=== PATIENT | female | born 1980 | race American Indian/Alaskan Native ===

== ENCOUNTER 2017-12-24 09:56 | Outpatient (CLI) | payer MEDICAID | END 2017-12-24 11:35 | disposition home or self-care (01) | LOC: TRG 09:56 | PROVIDERS: ATTEND Obstetrics & Gynecology | DX: O47.1 False labor at or after 37 completed weeks of gestation (principal); Z3A.37 37 weeks gestation of pregnancy | CPT/HCPCS: 59025 ==

== ENCOUNTER 2018-01-07 23:58 | Inpatient (IN) | payer MEDICAID ==
[2018-01-08] MEDS ORDERED: BRETHINE SUB-Q PRN ×2 (00:36→01:49)
[2018-01-08] MEDS ORDERED: SUBLIMAZE IV PRN (00:36)
[2018-01-08] MEDS ORDERED: ePHEDrine SULFATE IV PRN ×2 (00:36→01:49)
[2018-01-08] MEDS ORDERED: MINERAL OIL PO PRN ×2 (00:36→01:49)
[2018-01-08] MEDS ORDERED: XYLOCAINE 2% INFILTRATI ONE (00:36)
[2018-01-08] MEDS ORDERED: POLYCILLIN/NS 2 GM/100 ML 2 GM/100 ML BAG IV ONE (00:36)
[2018-01-08] MEDS ORDERED: BRETHINE IVP PRN ×2 (00:36→01:49)
[2018-01-08] MEDS ORDERED: PITOCin/NS 20 UNIT/1000ML DRIP 20 UNITS/1,000 ML BAG IV SCH ×2 (01:00→02:00)
[2018-01-08] MEDS ORDERED: LACTATED RINGERS 1,000 ML IV SCH ×2 (01:00→02:00)
[2018-01-08 01:06] LABS: Hematocrit 38.2 % (30.3-42.9); Hemoglobin 12.5 gm/dl (10.1-14.3); Mean Corpuscular HGB Conc 33 % (30-34); Mean Corpuscular Hemoglobin 29 pg (28-32); Mean Corpuscular Volume 89 fl (79-97); Platelet Count 204 K/mm3 (140-440); Red Blood Count 4.31 M/mm3 (3.65-5.03); Red Cell Distribution Width 14.4 % (13.2-15.2)
--- NOTE | 2018-01-08 02:02 | History and Physical Report ---
History of Present Illness Date of examination: 01/08/18 Date of admission: 01/08/18 00:35 Chief complaint: Contractions History of present illness: 37yo G 5 P 3 0 1 3 at 39 weeks 6 days here with c/o contractions every 6 to 8 mins. She reports positive movements but denies vaginal bleeding or loss of fluid. She is a [facility] patient where she only had 2 visits. Her last visit was over a month ago. No records are available. She reports initially receiving care at a practice in [place] prior to transferring to [facility]. Her course is complicated by Advanced Maternal Age. She denies any other complications. GBS unknown. Past History Past Medical History: no pertinent history Past Surgical History: no surgical history Family/Genetic History: none Social history: lives with family, full code - Obstetrical History Expected Date of Delivery: 01/09/18 Actual Gestation: 39 Week(s) 6 Day(s) : 5 Para: 3 Hx # Term Pregnancies: 3 Number of Pregnancies: 0 Spontaneous Abortions: 0 Induced : 1 Number of Living Children: 3 Medications and Allergies Allergies Allergy/AdvReac Type Severity Reaction Status Date / Time No Known Allergies Allergy Unverified 11/20/14 16:55 Home Medications Medication Instructions Recorded Confirmed Last Taken Type No Known Home Medications [No 11/21/14 07/18/16 Unknown History Reported Home Medications] Active Meds: Active Medications Ephedrine Sulfate (Ephedrine Sulfate) 10 mg IV Q2M PRN PRN Reason: Hypotension Ephedrine Sulfate (Ephedrine Sulfate) 10 mg IV Q2M PRN PRN Reason: Hypotension Fentanyl (Sublimaze) 100 mcg IV Q2H PRN PRN Reason: Labor Pain Lactated Ringer's (Lactated Ringers) 1,000 mls @ 125 mls/hr IV DIRECT ANNALEE Last Admin: 01/08/18 01:16 Dose: 125 mls/hr Oxytocin/Sodium Chloride (Pitocin/Ns 20 Unit/1000ml Drip) 20 units in 1,000 mls @ 125 mls/hr IV DIRECT ANNALEE Ampicillin Sodium (Ampicillin/Ns 1 Gm/50 Ml) 1 gm in 50 mls @ 100 mls/hr IV Q4HR ANNALEE; Protocol Lactated Ringer's (Lactated Ringers) 1,000 mls @ 125 mls/hr IV DIRECT ANNALEE Oxytocin/Sodium Chloride (Pitocin/Ns 20 Unit/1000ml Drip) 20 units in 1,000 mls @ 125 mls/hr IV DIRECT ANNALEE Mineral Oil (Mineral Oil) 30 ml PO QHS PRN PRN Reason: Constipation Mineral Oil (Mineral Oil) 30 ml PO QHS PRN PRN Reason: Constipation Terbutaline Sulfate (Brethine) 0.25 mg SUB-Q ONCE PRN PRN Reason: Hyperstimulation/Hypertonicity Terbutaline Sulfate (Brethine) 0.25 mg IVP ONCE PRN PRN Reason: Hyperstimulation/Hypertonicity Terbutaline Sulfate (Brethine) 0.25 mg SUB-Q ONCE PRN PRN Reason: Hyperstimulation/Hypertonicity Review of Systems All systems: negative - Vital Signs Vital signs: Vital Signs Temp Resp 98.6 F 20 01/08/18 00:21 01/08/18 00:21 Temp Pulse Resp BP Pulse Ox 98.6 F 67 20 106/61 01/08/18 00:21 01/08/18 01:16 01/08/18 00:21 01/08/18 01:16 - Physical Exam Cardiovascular: Regular rate, Normal S1, Normal S2, No murmurs Lungs: Positive: Clear to auscultation, Normal air movement Abdomen: Positive: normal appearance, soft Genitourinary (Female): Positive: normal external genitalia, normal perenium Vulva: both: normal Vagina: Positive: normal moisture Uterus: Positive: normal size, normal contour Anus/Rectum: Positive: normal perianal skin Extremities: Positive: normal Deep Tendon Reflex Grade: Normal +2 - Obstetrical FHR: auscultation normal, category 2 FHR comments: baseline 130, moderate variability, + accels, variable decels Uterine Contraction Monitor Mode: External Cervical Dilatation: 7.5 (per RN) Cervical Effacement Percentage: 100 (per RN) station: 0 (per RN) Uterine Contraction Pattern: Regular Results Result Diagrams: 01/08/18 00:48 All other labs normal. Assessment and Plan - Patient Problems (1) 39 weeks gestation of Current Visit: Yes Status: Acute (2) Active labor at term Current Visit: Yes Status: Acute Plan to address problem: Admit to L&D with routine labor orders Start ampicillin for GBS prophylaxis Anticipate vaginal delivery (3) AMA (advanced maternal age) multigravida 35+ Current Visit: Yes Status: Acute
[2018-01-08] MEDS ORDERED: MILK OF MAGNESIA PO PRN (02:12)
[2018-01-08] MEDS ORDERED: NORCO 5/325 PO PRN (02:12)
[2018-01-08] MEDS ORDERED: PHENERGAN PO PRN (02:12)
[2018-01-08] MEDS ORDERED: TUCKS PAD TP PRN (02:12)
[2018-01-08] MEDS ORDERED: LANSINOH TP PRN (02:12)
[2018-01-08] MEDS ORDERED: ZOFRAN IV PRN (02:12)
[2018-01-08] MEDS ORDERED: BENADRYL PO PRN (02:12)
[2018-01-08] MEDS ORDERED: TYLENOL PO PRN (02:12)
[2018-01-08] MEDS ORDERED: DULCOLAX PR PRN (02:12)
[2018-01-08] MEDS ORDERED: PHENERGAN PR PRN (02:12)
--- NOTE | 2018-01-08 02:22 | Procedure Note ---
OB Delivery Note - Delivery Date of Delivery: 01/08/18 Surgeon: TORIE SERRANO (TONY) Estimated blood loss: 100cc - Vaginal Delivery presentation: vertex Delivery position: OA Intrapartum events: precipitous labor- <3hr Delivery induction: none Delivery augmentation: rupture of membranes (AROM @ 01:22, clear fluid, moderate amount) Delivery monitor: external FHT, external uterine Route of delivery: (01:29) Delivery placenta: spontaneous (01:35) Delivery cord: 3 umbilical vessels Episiotomy: none Delivery laceration: none Anesthesia: none Delivery comments: of a vigorous term 5 lbs 6 oz male at 01:29. Baby placed [id number] on maternal abdomen. After 3 mins of delayed cord clamping, umbilical cord double- clamped by TONY Serrano and cut by FOB. Cord blood collected. Spontaneous delv of placenta Betzaida-side presenting @ 01:35. Small lochia present. Fundal massage and IV pitocin bolus initiated. Fundus F/ML/U-1. Placenta intact; was discarded. Perineum intact. No lacerations present. Mom and baby in stable condition. - Infant A at 1 minute: 9 at 5 minutes: 9 Gender: Male (5 lbs 6 oz (2437 g))
[2018-01-08] MEDS ORDERED: SODIUM CHLORIDE FLUSH SYRINGE 10 ML IV PRN (03:00)
[2018-01-08 03:31] LABS: Bilirubin,Urine NEG (Negative); Blood,Urine NEG (Negative); Color,Urine Yellow (Yellow); Mucus,Urine 1+ /HPF; Protein,Urine <15 mg/dL mg/dL (Negative); Urobilinogen,Urine < 2.0 mg/dL (<2.0)
[2018-01-08 03:39] LABS: Alanine Aminotransferase 12 units/L (7-56)
[2018-01-08 03:49] LABS: Uric Acid 2.9 mg/dL (3.5-7.6)
[2018-01-08] MEDS ORDERED: AMPICILLIN/NS 1 GM/50 ML 1 GM/50 ML BAG IV SCH (05:00)
[2018-01-08] MEDS: MOTRIN PO SCH ×3 (06:02→21:39)
[2018-01-08] MEDS: PRENATAL VITAMIN PO SCH (10:23)
[2018-01-08 15:54] LABS: Hematocrit 36.5 % (30.3-42.9)
[2018-01-09] MEDS: MOTRIN PO SCH ×4 (05:20→18:00)
--- NOTE | 2018-01-09 10:02 | Progress Note ---
Assessment and Plan A: PP Day #1 Stable P: Follow Routine Orders D/C Home today Plans Tubal RTO in 3 weeks Subjective - Subjective Date of service: 01/09/18 Patient reports: appetite normal, voiding normally, pain well controlled, flatus , ambulating normally : doing well, bottle feeding (and ) Objective - Vital Signs Latest vital signs: Vital Signs Temp Pulse Resp BP BP Pulse Ox 01/09/18 08:10 97.7 F 56 L 18 134/86 01/09/18 00:36 98.6 F 57 L 20 113/63 97 01/08/18 18:20 97.9 F 75 18 108/81 100 Intake and Output 01/08/18 01/09/18 01/09/18 22:59 06:59 14:59 Intake Total 200 360 Balance 200 360 Intake: Oral 200 360 Other: Total, Intake Amount 200 360 # Voids Void 1 1 - Exam Breasts: Present: normal Cardiovascular: Present: Regular rate Lungs: Present: Clear to auscultation, Normal air movement Abdomen: Present: normal appearance, soft, normal bowel sounds Uterus: Present: normal, firm, fundal height below umbilicus Extremities: Present: normal
--- NOTE | 2018-01-09 10:03 | Discharge Summary ---
Providers - Providers Date of Admission: 01/08/18 00:35 Date of discharge: 01/09/18 Attending physician: BENTLEY CORDOVA MD Primary care physician: BENTLEY CORDOVA MD Hospitalization Reason for admission: active labor Delivery: Episiotomy: none Laceration: none Other procedures: none complications: none Discharge diagnosis: IUP at term delivered [place] baby: male Condition at discharge: Good Disposition: DC-01 TO HOME OR SELFCARE Plan - Provider Discharge Summary Activity: routine, no sex for 6 weeks, no heavy lifting 4 weeks, no strenuous exercise Diet: routine Instructions: routine Additional instructions: [] Smoking cessation referral if applicable(refer to patient education folder for contact #) [] Refer to [facility]'s [facility] Booklet Call your doctor immediately for: * Fever > 100.5 * Heavy vaginal bleeding ( >1 pad per hour) * Severe persistent headache * Shortness of breath * Reddened, hot, painful area to leg or breast * Drainage or odor from incision. * Keep incision clean and dry at all times and follow doctor's instructions regarding bathing/showering - Follow up plan Follow up: BENTLEY CORDOVA MD [Primary Care Provider] - 01/30/18
[2018-01-09] MEDS: PRENATAL VITAMIN PO SCH (12:37)
[2018-01-10] MEDS: MOTRIN PO SCH ×3 (00:54→12:03)
[2018-01-10 10:06] VITALS: BP 134/93
[2018-01-10] MEDS: PRENATAL VITAMIN PO SCH (12:02)
== END 2018-01-10 15:00 | disposition home or self-care (01) | DRG 775 ==
LOC: TRG 23:58 → LD 01-08 00:35 → OB 01-08 03:17
PROVIDERS: ADMIT Obstetrics & Gynecology; ATTEND Obstetrics & Gynecology
PROC: 10E0XZZ Delivery of Products of Conception, External Approach (ICD-10-PCS; principal; 2018-01-08)
PROC: 10907ZC Drainage of Amniotic Fluid, Therapeutic from Products of Conception, Via Natural or Artificial Opening (ICD-10-PCS; 2018-01-08)
DX: O62.3 Precipitate labor (principal); Z3A.39 39 weeks gestation of pregnancy; Z37.0 Single live birth
CPT/HCPCS: 36415; 81001; 82565; 83615; 84450; 84460; 84550; 85014; 85018; 85027; 86592; 86850; 86900; 86901; 99211; G0463; J0290; J2590; J7120

== ENCOUNTER 2018-04-22 09:08 | Day surgery (SDC) | payer MEDICAID ==
[~2018-04-22 09:08] MED LIST: MARCAINE 0.5% INFILTRATI ONE; NACL 0.9% IR ONE
[2018-04-22] MEDS ORDERED: NACL BACTERIOSTATIC INFILTRATI ONE (11:28)
--- NOTE | 2018-04-22 11:32 | Anesthesia Consultation ---
Anesthesia Consult and Med Hx Date of service: 04/22/18 - Airway Anesthetic Teeth Evaluation: Good ROM Head & Neck: Adequate Mental/Hyoid Distance: Adequate Mallampati Class: Class I Intubation Access Assessment: Good - Pulmonary Exam CTA: Yes - Cardiac Exam Cardiac Exam: RRR - Pre-Operative Health Status ASA Pre-Surgery Classification: ASA2 Proposed Anesthetic Plan: General - Pulmonary Hx Smoking: Yes (2 cigs/day; quit 1999) Hx Asthma: No Hx Respiratory Symptoms: No COPD: No Hx Sleep Apnea: No - Cardiovascular System Hx Hypertension: Yes (Well controlled, no meds) Hx Heart Attack/AMI: No - Central Nervous System Hx Neuromuscular Disorder: No Hx Seizures: No CVA: No Hx Psychiatric Problems: No - Gastrointestinal Hx Gastroesophageal Reflux Disease: No - Endocrine Hx Renal Disease: No Hx Liver Disease: No Hx Insulin Dependent Diabetes: No Hx Non-Insulin Dependent Diabetes: No Hx Thyroid Disease: No - Hematic Hx Anemia: No Hx Sickle Cell Disease: No - Other Systems Hx Obesity: No - Additional Comments Anesthesia Medical History Comments: CBC pending per surgeon orders. NPO since midnight. No prior GA; no fam hx anesthesia complications.
--- NOTE | 2018-04-22 11:32 | Anesthesia Day of Surgery ---
Anesthesia Day of Surgery - Day of Surgery Patient Examined: Yes Patient H&P Reviewed: Yes Patient is NPO: Yes
[2018-04-22 11:49] LABS: Basophils # (Auto) 0.1 K/mm3 (0.0-0.1); Basophils % (Auto) 0.9 % (0.0-1.8); Eosinophils # (Auto) 0.1 K/mm3 (0.0-0.4); Eosinophils % (Auto) 1.6 % (0.0-4.3); Hematocrit 40.5 % (30.3-42.9); Hemoglobin 13.5 gm/dl (10.1-14.3); Lymphocytes # (Auto) 3.2 K/mm3 (1.2-5.4); Lymphocytes % (Auto) 41.7 % (13.4-35.0); Mean Corpuscular HGB Conc 34 % (30-34); Mean Corpuscular Hemoglobin 29 pg (28-32); Mean Corpuscular Volume 87 fl (79-97); Monocytes # (Auto) 0.4 K/mm3 (0.0-0.8); Monocytes % (Auto) 4.8 % (0.0-7.3); Platelet Count 282 K/mm3 (140-440); Red Blood Count 4.67 M/mm3 (3.65-5.03); Red Cell Distribution Width 14.6 % (13.2-15.2)
[2018-04-22] MEDS ORDERED: VERSED IV NR (12:00)
[2018-04-22] MEDS ORDERED: LACTATED RINGERS 1,000 ML IV SCH (12:00)
[2018-04-22] MEDS ORDERED: NEURONTIN PO NR (12:00)
[2018-04-22] MEDS ORDERED: ZOFRAN ONE (12:13)
[2018-04-22] MEDS ORDERED: ZEMURON IV ONE (12:13)
[2018-04-22] MEDS ORDERED: DECADRON ONE (12:13)
[2018-04-22] MEDS ORDERED: SUBLIMAZE ONE ×2 (12:13→13:34)
[2018-04-22] MEDS ORDERED: DIPRIVAN 10 MG/ML IV ONE (12:14)
[2018-04-22] MEDS ORDERED: MARCAINE 0.5% 30 ML INFILTRATI ONE (12:17)
[2018-04-22] MEDS ORDERED: ROBINUL ONE (13:30)
[2018-04-22] MEDS ORDERED: BLOXIVERZ ONE (13:30)
[2018-04-22] MEDS ORDERED: TORADOL ONE (13:32)
[2018-04-22] MEDS ORDERED: LACTATED RINGERS 1,000 ML ONE (13:36)
[2018-04-22] MEDS ORDERED: PERCOCET 5/325 PO PRN (13:59)
[2018-04-22] MEDS: DILAUDID IV PRN ×2 (14:18→14:30)
[2018-04-22] MEDS ORDERED: ZOFRAN IV PRN (14:21)
--- NOTE | 2018-04-22 15:36 | Post Anesthesia Evaluation ---
- Post Anesthesia Evaluation Patient Participated: Yes Airway Patent: Yes Stable Respiratory Function: Yes Nausea/Vomiting: No Temp > 96.8F: Yes Pain Manageable: Yes Adequeate Hydration: Yes Anesthesia Complications: No Block Receding Appropriately: Not Applicable Patient on Ventilator: No Other Comments: VSS, pain well controlled, tolerating PO. OK for d/c home.
[2018-04-22 17:28] VITALS: BP 132/76
--- NOTE | 2018-04-24 16:42 | Operative Report ---
Operative Report Operative Report: Preoperative diagnosis: Multiparity, desires permanent sterilization. Postoperative diagnosis: 1. Multiparity, desires permanent sterilization. 2. Left ovarian cyst. Procedure: 1. Laparoscopic tubal sterilization. 2. Left ovarian cystotomy. Surgeon: Dr. Ho Rn Cardiac Cath: none Anesthesia: general IVF: 1 liter of RL EBL: Minimal Complications: none Intraoperative findings: 1. Normal uterus, fallopian tubes, and right ovary. 2. Left ovarian cyst. Procedure details: Risks, benefits, and alternatives of the procedure were discussed in detail with the patient which included but not limited to the risk of infection, hemorrhage requiring blood transfusion, injury to the bowel, bladder and blood vessels, failure of the tubal sterilization to prevent which can result in unwanted in the future. The patient expressed understanding , her questions were answered, and she gave informed consent. The patient was taken to the operating room with an IV fluid and using ringer's lactate. In the operating room, she was placed in a dorsal supine position and given general anesthesia. She was then placed in a dorsolithotomy position. Venodyne boots were placed. The perineum, vagina, cervix and abdomen were washed and she was prepared and draped in usual sterile fashion. Examination under anesthesia revealed normal external genitalia, vagina, and cervix. The cervix was closed, long, and posterior, no gross lesion, no bleeding. The uterus was 8-9 week size anteverted and mobile. The adnexae were nonpalpable. A bivalve speculum was placed in the vagina, the anterior leaf of the cervix was grasped with a single-tooth tenaculum. A HUMI uterine manipulator was advanced into the uterine cavity to provide a means of manipulating the uterus during the procedure. The speculum was then removed from the vagina. Attention was then turned to the patient's abdomen where a 5 mm skin incision was made in the umbilical fold. The Veress needle was introduced into the peritoneal cavity at a 45 angle while tenting the abdominal wall. Intraperitoneal placement was confirmed using a water-filled seringe and by noticing a drop in the intra-abdominal pressure with insufflation of CO2 gas. A 5 mm trocar and sleeves were then advanced into the abdominal cavity where intraperitoneal placement was confirmed using the laparoscope. Pneumoperitoneum was achieved with 3.5 L of CO2 gas. A second 5-mm skin incision was made in the left lower quadrant and a 5 mm trocar and sleeve were then advanced into the peritoneal cavity under direct visualization with the laparoscope. A quick survey of the patient's abdomen and pelvis revealed normal uterus and right ovary, a left ovarian simple cyst measuring about 4 cm, normal fallopian tubes bilaterally. Bipolar cautery was used to cauterize the right fallopian tube at two locations and it was transected using endo- scissors. Hemostasis was obtained. Attention was turned to the left fallopian tube which was cauterized and transected in a similar fashion. Hemostasis was also achieved. The left ovarian cyst was punctured and a straw-colored fluid was drained and sent to pathology. The ports were opened to release the CO2 gas. The instruments were then removed from the abdominal cavity. The ports were closed with 4-0 Vicryl sutures. Dressing was placed. The counts of laps, needles, sponges, and instruments were correct 2. The patient tolerated the procedure well. She was awakened from the anesthesia and taken to the recovery room in a stable condition.
== END 2018-04-22 16:08 | disposition home or self-care (01) ==
LOC: OR 09:08
PROVIDERS: ATTEND Obstetrics & Gynecology
DX: N83.202 Unspecified ovarian cyst, left side (principal); I10 Essential (primary) hypertension; Z87.891 Personal history of nicotine dependence; Z82.49 Family history of ischemic heart disease and other diseases of the circulatory system; Z83.3 Family history of diabetes mellitus; Z80.8 Family history of malignant neoplasm of other organs or systems
CPT/HCPCS: 36415; 58662; 58671; 81025; 85025; 88112; J1100; J1170; J1885; J2250; J2405; J2704; J2710; J3010; J7120